=== PATIENT | female | born 1955 | race Hispanic/Latino ===

== ENCOUNTER → 2018-09-05 | Outpatient (CLI) | payer OTHER | END | disposition home or self-care (01) | LOC: RAH 14:49 | PROVIDERS: ATTEND Family Medicine | DX: Z12.31 Encounter for screening mammogram for malignant neoplasm of breast (principal) | CPT/HCPCS: 77067 ==

== ENCOUNTER → 2022-06-28 | Outpatient (CLI) | payer OTHER | END | disposition home or self-care (01) | LOC: RAH 08:24 | PROVIDERS: ATTEND Family Medicine | DX: Z12.31 Encounter for screening mammogram for malignant neoplasm of breast (principal) | CPT/HCPCS: 77067 ==

== ENCOUNTER → 2024-07-20 | Outpatient (CLI) | payer OTHER | END | disposition home or self-care (01) | LOC: RAH 11:41 | PROVIDERS: ATTEND Family Medicine | DX: Z12.31 Encounter for screening mammogram for malignant neoplasm of breast (principal) | CPT/HCPCS: 77067 ==

== ENCOUNTER → 2024-10-08 | Outpatient (CLI) | payer OTHER ==
--- NOTE | 2024-10-08 11:29 | HMCIMG ---
BILATERAL BREAST ULTRASOUND: CLINICAL HISTORY: Follow-up for dense breasts for Finding: Real-time examination of the both breasts demonstrates moderately heterogeneous echotexture throughout both the breasts without evidence of focal solid or cystic masses. There is benign-appearing bilateral axillary lymph node on the right measures 1.3 x 0.5 x 1.4 cm. On the left and measures 0.9 x 0.5 x 0.7 cm. IMPRESSION: Moderately dense breasts with no lesion seen. I would recommend annual mammography with tomography with bilateral breast sonogram. FINAL ASSESSMENT: ACR: BI-RAD- 2. Benign: Also a negative assessment; finding(s) benign abnormalities. Management: Routine mammography screening. Likelihood of Cancer: Essentially 0% likelihood of malignancy.
== END | disposition home or self-care (01) ==
LOC: RAH 10:51
PROVIDERS: ATTEND Internal Medicine
DX: R92.333 Mammographic heterogeneous density, bilateral breasts (principal); R92.8 Other abnormal and inconclusive findings on diagnostic imaging of breast; R92.2 Inconclusive mammogram